=== PATIENT | female | born 1995 | race Caucasian/White ===

== ENCOUNTER 2017-01-19 14:12 | Emergency (ER) | payer OTHER ==
[~2017-01-19] VITALS: Ht 167.6 cm; Wt 77.6 kg
[2017-01-19 17:01] LABS: BASOPHIL % 0.4 % (0-2); CARBON DIOXIDE 23.3 mmol/L (21-32); CHLORIDE SERUM 104 mmol/L (98-107); CREATININE SERUM 0.8 mg/dL (0.6-1.0); GFR1 > 60 mL/min; GLUCOSE SERUM 92 mg/dL (74-106); POTASSIUM SERUM 3.6 mmol/L (3.5-5.1); SODIUM SERUM 143 mmol/L (136-145)
[2017-01-19 17:05] LABS: ALBUMIN 4.4 g/dL (3.4-5.0); ALKALINE PHOSPHATASE 68 U/L (46-116); ALT/SGPT 51 U/L (14-59); AST/SGOT 67 U/L (15-37); BILIRUBIN TOTAL 0.59 mg/dL (0.20-1.00)
[2017-01-19 17:06] LABS: TOTAL PROTEIN, SERUM 8.3 g/dL (6.4-8.2)
[2017-01-19 17:13] LABS: FREE T4 1.83 ng/dL (0.76-1.46)
[2017-01-19 17:28] LABS: PLATELET COUNT 225 x10^3mcL (130-400); RED CELL DISTRIBUTION WIDTH 15.3 % (11.5-14.5)
[2017-01-19 17:29] LABS: AMPHETAMINE QUAL UR NONE DETECTED (NEG <=1000)
[2017-01-19 18:43] VITALS: BP 135/86
== END 2017-01-19 18:43 | disposition home or self-care (01) ==
LOC: ED 14:12
PROVIDERS: Emergency Medicine
DX: R46.89 Other symptoms and signs involving appearance and behavior (principal); F12.10 Cannabis abuse, uncomplicated; F41.9 Anxiety disorder, unspecified; Z79.899 Other long term (current) drug therapy
CPT/HCPCS: 80307; 84439; G0480; J2060; J3486